=== PATIENT | female | born 1985 | race Caucasian/White ===

== ENCOUNTER 2022-12-15 23:24 | Emergency (ER) | payer SELFPAY ==
[2022-12-15 23:25] VITALS: BP 176/101; PULSE 120; RESP 16; TEMP 36.9; O2SAT 99; BMI 48.0
[2022-12-16] MEDS: Lidocaine 2% (20 ml mdv) 20 ML Vial INFILT (00:52)
[2022-12-16] MEDS: HYDROmorphone 1 MG/ML Syringe 2 MG IM (00:53)
[2022-12-16] MEDS: Ondansetron ODT 4 MG Tablet PO (00:54)
[2022-12-16 02:36] VITALS: PULSE 99; RESP 16; O2SAT 99
--- NOTE | 2022-12-16 02:40 | EX.ED.DYSGE1 ---
HPI History of Present Illness Chief Complaint: Abscess Narrative Narrative: Patient is a 37-year-old female reports a past medical history of mild diabetes simply controlled by metformin. She reports over the past 3 to 4 days she has noticed increased swelling and pain along the left vaginal wall. She states she called OB but does not have an appointment for approximately 1 week. She denies any concern for STD or vaginal discharge. She states that there is been no fevers. She denies any concern for . She states as the swelling and pain is worsening and she has concerned that the area will need antibiotics and/or drained and secondary to this comes in for evaluation [facility] Medical History (Updated 12/16/22 @ 03:[address] Km Prieto, DO) Diabetes Home Medications albuterol sulfate 90 mcg/actuation aerosol inhaler (Proventil HFA) 6.7 g IH TID PRN Wheezing ##1 07/29/14 [Rx Last Taken Unknown] vits,calcium no.78-iron fumarate-folic acid 29 mg-1 mg tablet (Prenatabs FA) 1 tab PO DAILY 10/25/14 [History Last Taken 12/04/14 14:00 one] Ibuprofen [Motrin] 800 mg PO TID PRN PRN Pain #60 tabs 12/07/14 [Rx Last Taken Unknown] docusate sodium 100 mg capsule (DOK) 100 mg PO BID PRN PRN Constipation ##20 12/07/14 [Rx Last Taken Unknown] clindamycin HCl 300 mg capsule (Cleocin HCl) 300 mg PO 4X/DAY 10 days #40 caps 12/16/22 [Rx Last Taken Unknown] oxycodone-acetaminophen 5 mg-325 mg tablet (Percocet) 1 tab PO Q6H PRN pain 3 days #12 tabs 12/16/22 [Rx Last Taken Unknown] Allergy/AdvReac Type Severity Reaction Status Date / Time No Known Allergies Allergy Verified 07/29/14 14:42 Surgical History (Updated 12/15/22 @ 23:28 by Malia Joyner) Hx of cholecystectomy Social History (Updated 07/04/20 @ 18:09 by Jean ZARCO, PA) Smoking Status: Current every day smoker tobacco type: cigarettes ROS ROS ED Constitutional Constitutional ED: Denies chills or fever(s) ENT ENT ED: Denies sore throat Cardiovascular Cardiovascular: Denies chest pain Respiratory/Chest Respiratory/Chest: Denies cough or dyspnea Gastrointestinal Gastrointestinal: Denies abdominal pain, diarrhea, nausea or vomiting Genitourinary Genitourinary ED: Reports other Details: Positive vaginal swelling and pain ; Denies dysuria or hematuria Musculoskeletal Musculoskeletal: Denies myalgias Integumentary Reports abscess; Denies rash Neurologic Neurologic: Denies headache(s) Hematologic/Lymphatic Hematologic/Lymphatic: Denies easy bleeding or easy bruising EXAM Physical Exam Const Vital Signs: 12/15/22 23:25 12/16/22 02:36 Temperature 98.4 F Temperature Source Temporal Pulse Rate 120 H 99 Respiratory Rate 16 16 Blood Pressure 176/101 H Blood Pressure Mean 126 Pulse Ox 99 99 Oxygen Delivery Method Room Air Positive well nourished, well developed and obese General Appearance ED: well developed Nutritional Appearance: obese Eyes PERRL and EOMs intact bilaterally Neck supple Resp normal respiratory effort and clear to auscultation bilaterally Cardio regular rate and regular rhythm GI normal to inspection, nondistended, normoactive bowel sounds, non-tender, non-distended and no masses Auscultation: normoactive bowel sounds Palpation: soft Narrative: External genitalia is normal. However with separation of the labial tissue there is a 1 x 2 cm area of erythema and induration along the left internal vaginal wall most consistent with a infected Bartholin cyst/abscess. The area is painful to palpation but there is no active drainage or discharge No soft tissue changes to suggest Ksenia's gangrene Extremity normal to inspection Neuro oriented x3 and CN's II-XII intact bilaterally Sensorium / Orientation: alert Psych mental status grossly normal Skin Skin Narrative: Soft tissue changes to the vaginal wall as documented above MDM MDM MDM Narrative Medical decision making narrative: Patient presented to the ER afebrile and had no physical exam findings of systemic infection. Therefore I felt no need for imaging or laboratory studies. The patient was given IM Dilaudid secondary to the need for incision and drainage and the pain that it would cause. The patient was started on antibiotics with concern for possible retained infection especially as she is diabetic after the incision and drainage but as she has no signs of systemic infection does not need admitted to the hospital or emergent OB consultation and therefore she is safe for discharge after she was medicated the vaginal tissue was cleaned with chlorhexidine and then anesthetized using 10 mL of 2% lidocaine without epinephrine in local fashion. A #11 blade was used to make a 1 cm incision over top the area of induration. A large amount of purulent material was expressed. Loculations were dissected with a needle moreno. The wound was copiously irrigated with normal saline. The patient tolerated the procedure well without complication. Discharge Plan Triage Chief Complaint: Abscess ED Provider: Km Prieto Dx/Rx/DC Orders Clinical Impression: Abscess of left Bartholin's gland, Type 2 diabetes mellitus Instructions: Bartholin Cyst and Abscess, ED Abscess Incision And Drainage Prescriptions: New clindamycin HCl [Cleocin HCl] 300 mg capsule 300 mg PO 4X/DAY 10 Days Qty: 40 0RF oxycodone-acetaminophen [Percocet] 5-325 mg tablet 1 tab PO Q6H PRN (Reason: pain) 3 Days Qty: 12 0RF No Action albuterol sulfate [Proventil HFA] 6.7 GM HFA aerosol inhaler 6.7 g IH TID PRN (Reason: Wheezing) Qty: 1 0RF vit,[id number] [Prenatabs FA] 1 TABLET tablet 1 tab PO DAILY docusate sodium [DOK] 100 MG capsule 100 mg PO BID PRN PRN (Reason: Constipation) Qty: 20 1RF Ibuprofen [Motrin] 800 MG tablet 800 mg PO TID PRN PRN (Reason: Pain) Qty: 60 1RF Stand Alone Forms: ED Work / School Excuse Primary Care Provider: Sharmin Santos Referrals: Moon Sanchez DO [Med Staff - Active Staff] - Sharmin Santos PA [Primary Care Provider] - Activity Restrictions/Additional Instructions: Please follow-up with [facility] for repeat evaluation and take your antibiotics as directed to resolve the remaining infection. If you have any further concerns please return to the ER for repeat evaluation. Disposition Disposition: Home, Self Care Discharge Date/Time: 12/16/22 02:55
[2022-12-16] MEDS: Clindamycin HCl 150 MG Capsule 300 MG PO (02:50)
== END 2022-12-16 02:55 | disposition home or self-care (01) ==
PROVIDERS: Emergency Provider Emergency Medicine; PCP Physician Assistant; Visit Provider Emergency Medicine
DX: N75.1 Abscess of Bartholin's gland (principal); E11.9 Type 2 diabetes mellitus without complications; F17.210 Nicotine dependence, cigarettes, uncomplicated
CPT/HCPCS: 96372; 99283

== ENCOUNTER → 2024-12-13 | Outpatient (CLI) | payer MEDICAID, SELFPAY ==
--- NOTE | 2024-12-13 17:29 | CT_ITS ---
EXAM: CT HEAD WITHOUT INTRAVENOUS CONTRAST CLINICAL INDICATION: HEADACHE TECHNIQUE: Multiple axial images were obtained of the head without intravenous contrast. This CT exam was performed using one or more of the following dose reduction techniques: automated exposure control, adjustment of the mA and/or kV according to patient size, and/or use of iterative reconstruction technique. COMPARISON: No relevant prior studies available. FINDINGS: BRAIN AND EXTRA-AXIAL SPACES: Unremarkable. No intra- or extra-axial hemorrhage. No evidence of acute infarct. No intracranial mass or mass effect. There is preservation of the caballero/white matter interface. Posterior fossa structures are unremarkable. Ventricles are appropriate for age. No hydrocephalus. Basal cisterns are patent. BONES/JOINTS: Unremarkable. No discrete lytic or blastic abnormalities. SINUSES: Unremarkable as visualized. Clear. MASTOID AIR CELLS: Unremarkable. Clear. ORBITS: Visualized globes, extraocular muscles, optic nerves and retrobulbar fat appear unremarkable. CT/Brain/Head without Contrast IMPRESSION: Negative head/brain CT without intravenous contrast. Electronically Signed: Matthias Longoria MD at 18:39 EST ,
== END | disposition home or self-care (01) ==
LOC: CT 17:26
PROVIDERS: PCP Registered Nurse; Referring Provider Registered Nurse; Visit Provider Registered Nurse
DX: G44.53 Primary thunderclap headache (principal)

== ENCOUNTER → 2025-04-21 | Outpatient (CLI) | payer MEDICAID, SELFPAY | END | disposition home or self-care (01) | LOC: SL 19:59 | PROVIDERS: PCP Registered Nurse; Referring Provider Psychiatry & Neurology Sleep Medicine; Visit Provider Psychiatry & Neurology Sleep Medicine | DX: G47.10 Hypersomnia, unspecified (principal); G47.33 Obstructive sleep apnea (adult) (pediatric) | CPT/HCPCS: 95810 ==

== ENCOUNTER → 2025-04-26 | Outpatient (CLI) | payer MEDICAID, SELFPAY | END | disposition home or self-care (01) | LOC: SL 10:12 | PROVIDERS: PCP Registered Nurse; Referring Provider Psychiatry & Neurology Sleep Medicine; Visit Provider Psychiatry & Neurology Sleep Medicine | DX: G47.10 Hypersomnia, unspecified (principal); G47.33 Obstructive sleep apnea (adult) (pediatric) ==